=== PATIENT | female | born 2000 | race Caucasian/White ===

== ENCOUNTER 2022-02-15 12:44 | Emergency (ER) | payer BC, OTHER ==
[~2022-02-15] VITALS: Ht 149.8 cm; Wt 56.9 kg
[2022-02-15] MEDS ORDERED: KETOROLAC 30 MG/ML VIAL IVP STA (13:01)
[2022-02-15] MEDS ORDERED: ONDANSETRON 4 MG/2 ML (SDV) Z0FRAN IVP STA (13:01)
[2022-02-15] MEDS ORDERED: NS IV 1000 ML 1,000 ML IV STA (13:01)
[2022-02-15 13:07] LABS: BILIRUBIN,URINE NEGATIVE (NEGATIVE); CLARITY,URINE SL CLOUDY; COLOR,URINE YELLOW; GLUCOSE, URINE (UA) NEGATIVE (NEGATIVE); KETONES,URINE NEGATIVE (NEGATIVE); LEUKOCYTE ESTERASE ,URINE 1+ (NEGATIVE); NITRITE,URINE NEGATIVE (NEGATIVE); PROTEIN,URINE NEGATIVE (NEGATIVE)
--- NOTE | 2022-02-15 13:08 | ED GI ---
General Chief Complaint: Abdominal/GI Problems Stated Complaint: ABD PAIN; DIZZINESS; VOMITING Nursing Triage Note: Patient reports she has been having "stomach problems" over the last 2 months. She reports she was seen at [facility] 1 month ago, but did not receive a conclusive diagnosis or testing. She states she has had 5 episodes of nausea/vomiting over the last 2 days. Source of Information: Patient History of Present Illness Date Seen by Provider: Feb 15, 2022 Time Seen by Provider: 12:46 Initial Comments 21-year-old female presenting with complaints of stomach problems and abdominal pain. She states this has been going on for over 2 months. She did go to [facility] a month ago but states that they did not do any testing. She does report since she woke up this am she only had a hashbrown. She states that food does not trigger her abdominal pain or nausea and vomiting. She has had 5 episodes of nausea and vomiting since this morning. She states her last episode of throwing up was about 45 minutes prior to arrival. They had just recently moved from [place] to [place], so when she was having issues today they came here to the emergency department. She does have a history of high blood pressure but states that it corrected itself and she stopped taking the medication. She denies having a headache, vision changes, chest pain, diarrhea, blood in her stool, blood in her urine. She denies fever, chills. She did have an ultrasound of her gallbladder around 2015 and was told that her gallbladder was large and folded over on itself. She also had a scope of her stomach done around that time trying to figure out why she keeps getting abdominal bloating and abdominal GI issues. She states they never really found out anything. She has not tried to see her regular doctor in the last 2 months while she has been having the abdominal pain with nausea and vomiting. Timing/Duration: Other (over 2 months but felt it was worse in last 2 days) Severity/Quality: Mild (mild currently but when it gets severe it can spike up to 10 out of 10 pain), Aching, Sharp Location: RLQ Radiation: RLQ Activities at Onset: None Modifying Factors: Worsens With Movement (bending over or lifting something makes the pain worse); Improves With Palpation (palpation makes the pain worse) Associated Symptoms: No Back Pain, No Chest Pain, No Diaphoresis, No Fever/Chills, No Fatigue, No Headache, No Heartburn; Nausea/Vomiting; No Rash, No Shortness of Air, No Swelling/Mass in Abdomen, No Syncope, No Weakness Allergies and Home Medications Allergies Coded Allergies: cefdinir (Verified Allergy, Unknown, 02/15/22) Patient Home Medication List Home Medication List Reviewed: Yes Dicyclomine HCl (Dicyclomine HCl) 10 Mg Capsule, 10 MG PO Q6H PRN for abdominal pain Prescribed by: LIZ GOMEZ on 02/15/22 1444 Ondansetron (Ondansetron Odt) 4 Mg Tab.rapdis, 4 MG PO Q6H PRN for NAUSEA/VOMITING Prescribed by: LIZ MEJIART on 02/15/22 1444 Review of Systems Review of Systems Constitutional: No chills; dizziness (she feels like she gets dizzy and light headed with standing); No fever EENTM: No Symptoms Reported Respiratory: No Symptoms Reported Cardiovascular: No Symptoms Reported Gastrointestinal: See HPI Genitourinary: See HPI Musculoskeletal: no symptoms reported Skin: No rash Psychiatric/Neurological: No Symptoms Reported Endocrine: No Symptoms Reported Hematologic/Lymphatic: No Symptoms Reported Past Yxnqftn-Rmaegs-Nuwyrf Hx Patient Social History Tobacco Use?: No Use of E-Cig and/or Vaping dev: Yes Substance use?: No Alcohol Use?: No Past Medical History Surgery/Hospitalization HX: Chronic "stomach issues", Hypertension Last Menstrual Period: Feb 06, 2022 Physical Exam Vital Signs Vital Signs - First Documented 02/15/22 12:49 Temp 36.1 Pulse 101 Resp 22 Pulse Ox 99 O2 Delivery Room Air Capillary Refill : Less Than 3 Seconds Height/Weight/BMI Height: '" Weight: lbs. oz. kg; 25.00 BMI Method: General Appearance: WD/WN, no apparent distress HEENT: PERRL/EOMI, pharynx normal Neck: non-tender, full range of motion, supple, normal inspection Respiratory: chest non-tender, lungs clear, normal breath sounds, no respiratory distress, no accessory muscle use Cardiovascular: normal peripheral pulses, regular rate, rhythm Gastrointestinal: normal bowel sounds, soft, no pulsatile mass; No distended, No guarding, No rebound; tenderness (RLQ) Rectal: deferred Extremities: normal range of motion, non-tender, normal capillary refill Back: no CVA tenderness Neurologic/Psychiatric: alert, oriented x 3 Skin: normal color, warm/dry Progress/Results/Core Measures Results/Orders Lab Results Laboratory Tests Test 02/15/22 13:00 02/15/22 13:09 Range/Units Urine Color YELLOW Urine Clarity SL CLOUDY Urine pH 7.0 5-9 Urine Specific [place] 1.015 L 1.016-1.022 Urine Protein NEGATIVE NEGATIVE Urine Glucose (UA) NEGATIVE NEGATIVE Urine Ketones NEGATIVE NEGATIVE Urine Nitrite NEGATIVE NEGATIVE Urine Bilirubin NEGATIVE NEGATIVE Urine Urobilinogen 0.2 < = 1.0 MG/DL Urine Leukocyte Esterase 1+ H NEGATIVE Urine RBC (Auto) NEGATIVE NEGATIVE Urine RBC NONE /HPF Urine WBC 5-10 H /HPF Urine Squamous Epithelial Cells 5-10 /HPF Urine Crystals NONE /LPF Urine Bacteria FEW H /HPF Urine Casts NONE /LPF Urine Mucus NEGATIVE /LPF Urine Culture Indicated YES Urine Opiates Screen NEGATIVE NEGATIVE Urine Oxycodone Screen NEGATIVE NEGATIVE Urine Methadone Screen NEGATIVE NEGATIVE Urine Propoxyphene Screen NEGATIVE NEGATIVE Urine Barbiturates Screen NEGATIVE NEGATIVE Ur Tricyclic Antidepressants Screen POSITIVE H NEGATIVE Urine Phencyclidine Screen NEGATIVE NEGATIVE Urine Amphetamines Screen NEGATIVE NEGATIVE Urine Methamphetamines Screen NEGATIVE NEGATIVE Urine Benzodiazepines Screen NEGATIVE NEGATIVE Urine Cocaine Screen NEGATIVE NEGATIVE Urine Cannabinoids Screen POSITIVE H NEGATIVE White Blood Count 9.1 4.3-11.0 10^3/uL Red Blood Count 4.47 3.80-5.11 10^6/uL Hemoglobin 12.8 11.5-16.0 g/dL Hematocrit 39 35-52 % Mean Corpuscular Volume 86 80-99 fL Mean Corpuscular Hemoglobin 29 25-34 pg Mean Corpuscular Hemoglobin Concent 33 32-36 g/dL Red Cell Distribution Width 14.3 10.0-14.5 % Platelet Count 327 130-400 10^3/uL Mean Platelet Volume 9.7 9.0-12.2 fL Immature Granulocyte % (Auto) 0 % Neutrophils (%) (Auto) 72 42-75 % Lymphocytes (%) (Auto) 20 12-44 % Monocytes (%) (Auto) 6 0-12 % Eosinophils (%) (Auto) 2 0-10 % Basophils (%) (Auto) 1 0-10 % Neutrophils # (Auto) 6.5 1.8-7.8 10^3/uL Lymphocytes # (Auto) 1.8 1.0-4.0 10^3/uL Monocytes # (Auto) 0.5 0.0-1.0 10^3/uL Eosinophils # (Auto) 0.2 0.0-0.3 10^3/uL Basophils # (Auto) 0.1 0.0-0.1 10^3/uL Immature Granulocyte # (Auto) 0.0 0.0-0.1 10^3/uL Sodium Level 138 135-145 MMOL/L Potassium Level 3.2 L 3.6-5.0 MMOL/L Chloride Level 100 98-107 MMOL/L Carbon Dioxide Level 25 21-32 MMOL/L Anion Gap 13 5-14 MMOL/L Blood Urea Nitrogen 5 L 7-18 MG/DL Creatinine 0.60 0.60-1.30 MG/DL Estimat Glomerular Filtration Rate 130 BUN/Creatinine Ratio 8 Glucose Level 88 70-105 MG/DL Calcium Level 9.1 8.5-10.1 MG/DL Corrected Calcium 8.7 8.5-10.1 MG/DL Total Bilirubin 0.3 0.1-1.0 MG/DL Aspartate Amino Transf (AST/SGOT) 21 5-34 U/L Alanine Aminotransferase (ALT/SGPT) 22 0-55 U/L Alkaline Phosphatase 61 40-136 U/L Total Protein 7.2 6.4-8.2 GM/DL Albumin 4.5 3.2-4.5 GM/DL Lipase 16 8-78 U/L My Orders Orders - LIZ GOMEZ MD Ua Culture If Indicated (02/15/22 12:47) Urine Bedside (02/15/22 12:47) Drug Screen Stat (Urine) (02/15/22 12:47) Comprehensive Metabolic Panel (02/15/22 12:48) Lipase (02/15/22 12:48) Ed Iv/Invasive Line Start (02/15/22 12:48) Cbc With Automated Diff (02/15/22 12:48) Ns Iv 1000 Ml (Sodium Chloride 0.9%) (02/15/22 13:01) Ondansetron Injection (Zofran Injectio (02/15/22 13:01) Ketorolac Injection (Toradol Injection) (02/15/22 13:01) Urine Culture (02/15/22 13:00) Ct Abdomen/Pelvis W (02/15/22 13:33) Iohexol Injection (Omnipaque 350 Mg/Ml 1 (02/15/22 13:45) Received Contrast (Hold Metformin- Contr (02/15/22 13:45) Sodium Chloride Flush (Catheter Flush Sy (02/15/22 13:45) Ns (Ivpb) (Sodium Chloride 0.9% Ivpb Bag (02/15/22 13:45) Medications Given in ED Current Medications Medications Dose Ordered Sig/Robert Route Start Time Stop Time Status Last Admin Dose Admin Iohexol 100 ml ONCE ONCE IV 02/15/22 13:45 02/15/22 13:46 DC 02/15/22 13:49 80 ML Sodium Chloride 10 ml NEEDED PRN IV 02/15/22 13:45 02/15/22 13:49 10 ML Sodium Chloride 100 ml ONCE ONCE IV 02/15/22 13:45 02/15/22 13:46 DC 02/15/22 13:49 100 ML Vital Signs/I&O 02/15/22 12:49 Temp 36.1 Pulse 101 Resp 22 B/P (MAP) Pulse Ox 99 O2 Delivery Room Air Progress Progress Note #1: Progress Note check labs, urine and CT scan of abdomen/pelvis. Given NS 1 L IVF bolus for hydration, Toradol for pain, Zofran for nausea. Differential diagnosis includes colitis, diverticulitis, appendicitis, ovarian cyst, UTI, pyelonephritis, renal stone Progress Note #2: Progress Note Lab does not show any acute significant abnormality to account for her symptoms. CT scan is also not showing any acute process to account for her complaints. Will update patient on results and findings and can offer symptomatic treatment for nausea and general pain. Encouraged to follow-up with her regular provider as she may need some additional testing beyond what is available through the emergency department. After discussion with the patient will discharge on Bentyl or dicyclomine for pain, Zofran for nausea and vomiting. Encourage fluids and hydration. Advised to check with clinic for further work-up. Although her urine showed some trace leukocyte esterase and bacteria patient denies any UTI symptoms so will defer antibiotics for now. If she starts having symptoms she is to call back as well as if with the urine culture shows that she does need an antibiotic and it is not just a contaminant from the skin she will get a call so we can start her on an antibiotic. Diagnostic Imaging Diagonstic Imaging: CT Plain Films/CT/US/NM/MRI: abdomen, pelvis Comments NAME: [facility] REC#: [id number] PT STATUS: REG ER : 2000 PHYSICIAN: LIZ GOMEZ MD ADMIT DATE: 02/15/22/ER FS Draft Date of Exam:02/15/22 CT ABDOMEN/PELVIS W EXAMINATION: CT abdomen and pelvis with intravenous contrast. TECHNIQUE: Multiple contiguous axial images were obtained through the abdomen and pelvis after the uneventful administration of intravenous contrast. All CT scans use one or more of the following dose optimizing techniques: automated exposure control, MA and/or KvP adjustment based on patient size and exam type or iterative reconstruction. HISTORY: Right lower quadrant pain COMPARISON: None available. FINDINGS: Limited views of the lower thorax are unremarkable. The liver is normal without focal lesion. There is no biliary ductal dilation. Gallbladder is normal. Pancreas is normal. Spleen is normal. Adrenal glands are normal. The kidneys are normal. There is no hydronephrosis. Urinary bladder is normal. Bowel is normal in caliber without obstruction or inflammation. The appendix is seen. No inflammatory process is seen in the right lower quadrant. No free fluid or air. No abdominal or pelvic lymphadenopathy. Aorta is normal in caliber without aneurysm. There are no suspicious osseus lesions. IMPRESSION: 1. No acute abnormality in the abdomen or pelvis. Dictated on workstation # [id number] Dict: 02/15/22 1357 Trans: 02/15/22 1402 CVB [id number] Interpreted by: RONNI ROSE MD Electronically signed by: Reviewed: Reviewed by Me Departure Impression Primary Impression: Right lower quadrant abdominal pain Additional Impression: Nausea and vomiting in adult patient Disposition: 01 HOME, SELF-CARE Condition: Stable Departure-Patient Inst. Decision time for Depature: 14:26 Referrals: NO,LOCAL PHYSICIAN (PCP) Primary Care Physician [facility] Patient Instructions: Nausea and Vomiting, Adult ED, Abdominal Pain, Adult ED Add. Discharge Instructions: Stay well-hydrated and drink plenty of fluids. Check back with clinic as you may need a colonoscopy or additional testing beyond what is available through the emergency department. They may want to refer you to a GI specialist to further look into your recurrent abdominal issues. All discharge instructions reviewed with patient and/or family. Voiced understanding. Scripts Ondansetron (Ondansetron Odt) 4 Mg Tab.rapdis 4 MG PO Q6H PRN for NAUSEA/VOMITING for 5 Days, #20 TAB 0 Refills Prov: LIZ GOMEZ MD 02/15/22 Dicyclomine HCl (Dicyclomine HCl) 10 Mg Capsule 10 MG PO Q6H PRN for abdominal pain for 7 Days, #28 CAP 0 Refills Prov: LIZ GOMEZ MD 02/15/22 Work/School Note: Work Release Form Date Seen in the Emergency Department: Feb 15, 2022 Return to Work: Feb 17, 2022 Restrictions: Return-No Vomiting(24hrs) LIZ GOMEZ MD Feb 15, 2022 13:08
[2022-02-15 13:16] LABS: BASOPHILS # (AUTO) 0.1 10^3/uL (0.0-0.1); BASOPHILS % (AUTO) 1 % (0-10); EOSINOPHILS # (AUTO) 0.2 10^3/uL (0.0-0.3); EOSINOPHILS % (AUTO) 2 % (0-10); HEMATOCRIT 39 % (35-52); HEMOGLOBIN 12.8 g/dL (11.5-16.0); LYMPHOCYTES # (AUTO) 1.8 10^3/uL (1.0-4.0); LYMPHOCYTES % (AUTO) 20 % (12-44); MEAN CORPUSCULAR HEMOGLOBIN 29 pg (25-34); MEAN CORPUSCULAR HGB CONC 33 g/dL (32-36); MEAN CORPUSCULAR VOLUME 86 fL (80-99); MEAN PLATELET VOLUME 9.7 fL (9.0-12.2); MONOCYTES # (AUTO) 0.5 10^3/uL (0.0-1.0); MONOCYTES % (AUTO) 6 % (0-12); NEUTROPHILS # (AUTO) 6.5 10^3/uL (1.8-7.8); NEUTROPHILS % (AUTO) 72 % (42-75); PLATELET COUNT 327 10^3/uL (130-400); WHITE BLOOD COUNT 9.1 10^3/uL (4.3-11.0)
[2022-02-15 13:19] LABS: BACTERIA,URINE FEW /HPF
[2022-02-15 13:21] LABS: AMPHETAMINE SCREEN, URINE NEGATIVE (NEGATIVE); BARBITURATE SCREEN URINE NEGATIVE (NEGATIVE); BENZODIAZEPINES SCREEN URINE NEGATIVE (NEGATIVE); CANNABINOID SCREEN, URINE POSITIVE (NEGATIVE); COCAINE SCREEN URINE NEGATIVE (NEGATIVE); OPIATE SCREEN URINE NEGATIVE (NEGATIVE)
[2022-02-15 13:22] LABS: METHADONE STAT NEGATIVE (NEGATIVE); OXYCODONE STAT NEGATIVE (NEGATIVE); PROPOXYPHENE STAT NEGATIVE (NEGATIVE); TRICYCLIC ANTIDEPRESSANTS SCRE POSITIVE (NEGATIVE)
[2022-02-15 13:34] LABS: CREATININE SERUM 0.6 MG/DL (0.60-1.30); POTASSIUM 3.2 MMOL/L (3.6-5.0)
[2022-02-15 13:35] LABS: ALBUMIN 4.5 GM/DL (3.2-4.5); BILIRUBIN,TOTAL 0.3 MG/DL (0.1-1.0); CALCIUM 9.1 MG/DL (8.5-10.1); TOTAL PROTEIN 7.2 GM/DL (6.4-8.2)
[2022-02-15] MEDS ORDERED: IOHEXOL 350 MG/ML 100 ML (OMNIPAQUE 350) VIAL IV ONE (13:45)
[2022-02-15] MEDS ORDERED: CATHETER FLUSH 10 ML SYR IV PRN (13:45)
[2022-02-15] MEDS ORDERED: NS 100 ML (IVPB) BAG IV ONE (13:45)
[2022-02-15] MEDS ORDERED: HOLD METFORMIN - RECEIVED CONTRAST 20 ML VIAL IV SCH (13:45)
--- NOTE | 2022-02-15 14:02 | Diagnostic Imaging Report ---
EXAMINATION: CT abdomen and pelvis with intravenous contrast. TECHNIQUE: Multiple contiguous axial images were obtained through the abdomen and pelvis after the uneventful administration of intravenous contrast. All CT scans use one or more of the following dose optimizing techniques: automated exposure control, MA and/or KvP adjustment based on patient size and exam type or iterative reconstruction. HISTORY: Right lower quadrant pain COMPARISON: None available. FINDINGS: Limited views of the lower thorax are unremarkable. The liver is normal without focal lesion. There is no biliary ductal dilation. Gallbladder is normal. Pancreas is normal. Spleen is normal. Adrenal glands are normal. The kidneys are normal. There is no hydronephrosis. Urinary bladder is normal. Bowel is normal in caliber without obstruction or inflammation. The appendix is seen. No inflammatory process is seen in the right lower quadrant. No free fluid or air. No abdominal or pelvic lymphadenopathy. Aorta is normal in caliber without aneurysm. There are no suspicious osseus lesions. IMPRESSION: 1. No acute abnormality in the abdomen or pelvis. Dictated by: Dictated on workstation # [id number]
[2022-02-15] MEDS ORDERED: ONDA4TAB11 PO (14:44)
[2022-02-15] MEDS ORDERED: DICY10CA12 PO (14:44)
[2022-02-15 14:48] VITALS: BP 136/91
== END 2022-02-15 14:50 | disposition home or self-care (01) ==
LOC: ER FS 12:46
DX: R10.31 Right lower quadrant pain (principal); R11.2 Nausea with vomiting, unspecified; F17.290 Nicotine dependence, other tobacco product, uncomplicated; Z28.311 Partially vaccinated for COVID-19
CPT/HCPCS: 36415; 74177; 80053; 80306; 81000; 83690; 84703; 85025; 87077; 87088; 87186; Q9967